=== PATIENT | male | born 1970 | race Caucasian/White ===

== ENCOUNTER 2017-06-05 03:52 | Inpatient (IN) | payer SELFPAY ==
[~2017-06-05] VITALS: Ht 177.8 cm; Wt 70.3 kg
[2017-06-05] VITALS (71 sets, daily range): BP systolic 76–146; BP diastolic 30–91
[2017-06-05] MEDS ORDERED: PROPOFOL 10MG/ML 100ML 100 ML IV ONE ×2 (04:15→05:45)
[2017-06-05] MEDS ORDERED: SUCCINYLCHOLINE CHLORIDE 200MG/10ML VIAL IV ONE ×2 (04:15→06:00)
[2017-06-05] MEDS ORDERED: FUROSEMIDE 40MG/4ML VIAL IV ONE (04:15)
[2017-06-05] MEDS ORDERED: ETOMIDATE 2MG/ML 10ML VIAL IV ONE ×2 (04:15→06:00)
[2017-06-05] MEDS ORDERED: ONDANSETRON HCL 4MG/2ML VIAL IV STA (04:15)
[2017-06-05] MEDS ORDERED: NITROGLYCERIN 50MG PREMIX 250 ML IV ONE ×2 (04:22→06:30)
[2017-06-05 04:48] LABS: HEMATOCRIT. 57.3 % (42.0-52.0); HEMOGLOBIN. 18.8 g/dL (14.0-18.0); MEAN CORPUSCULAR HEMOGLOBIN 29.4 pg (28.0-32.0); MEAN CORPUSCULAR VOLUME 89.8 fL (80.0-94.0); MEAN PLATELET VOLUME 8.8 fl (7.4-10.4); PLATELET 287 x1000/uL (130-400); RED BLOOD CELL COUNT 6.38 mill/uL (4.7-6.1); RED CELL DISTRIBUTION WIDTH 13.6 % (11.6-14.6)
[2017-06-05 04:54] LABS: INR 1.1; PROTHROMBIN TIME 11.8 sec (9.4-11.6)
[2017-06-05 05:10] LABS: CARBON DIOXIDE 13 mEq/L (21-32); CHLORIDE 101 mEq/L (98-107)
[2017-06-05 05:14] LABS: ATYPICAL LYMPHOCYTES 1; PLATELET ESTIMATE NORMAL
[2017-06-05 05:22] LABS: BG BASE EXCESS -20.1 mmol/L (-2.0-2.0); BG CARBOXYHEMOGLOBIN 3.1 % (0.5-1.5); BG DEOXYHEMOGLOBIN 16.6 % (0.0-5.0); BG FRACTION INSPIRED OXYGEN 100; BG HCO3 ACT 10.5 mmol/L (22.0-26.0); BG METHEMOGLOBIN 0.5 % (0.0-1.5); BG OXYGEN SATURATION 82.8 % (92.0-98.5); BG OXYHEMOGLOBIN 79.8 % (94.0-97.0); BG PCO2 40.9 mmHg (35.0-45.0); BG PH 7.026 (7.350-7.450); BG PO2 61.6 mmHg (75.0-100.0); BG SAMPLE SITE RIGHT RADIAL; BG TIDAL VOLUME(mL) 500 mL; BG TOTAL HEMOGLOBIN 20.5 g/dL (12.0-18.0); BG VENT MODE VENT - A/C; BG VENT RATE 16 set
[2017-06-05] MEDS ORDERED: EPINEPHRINE 0.1MG/ML (1:10,000) 10ML SYR ONE (06:00)
[2017-06-05 06:09] LABS: *AMPHETAMINES SCREEN URINE NEGATIVE (NEGATIVE); *BARBITURATES SCREEN URINE NEGATIVE (NEGATIVE); *BENZODIAZEPINES SCREEN URINE NEGATIVE (NEGATIVE); *COCAINE SCREEN URINE PRESUMTIVE POSITIVE (NEGATIVE); CANNABINOID URINE SCREEN NEGATIVE (NEGATIVE); METHADONE URINE SCREEN NEGATIVE (NEGATIVE); OPIATES URINE SCREEN NEGATIVE (NEGATIVE); PHENCYCLIDINE URINE SCREEN NEGATIVE (NEGATIVE)
[2017-06-05] MEDS ORDERED: DEXTROSE 50% WATER 50ML SYRINGE IV PRN ×5 (06:30→09:30)
[2017-06-05] MEDS ORDERED: INSULIN LISPRO 100 UNITS/ML SUBCUT SCH (06:30)
[2017-06-05] MEDS ORDERED: BLOOD SUGAR DIAGNOSTIC STRIP TEST SCH ×3 (06:30→09:30)
[2017-06-05] MEDS ORDERED: LOSA25TA12 PO (07:08)
[2017-06-05] MEDS ORDERED: GLIP5TAB12 PO (07:08)
[2017-06-05] MEDS ORDERED: VANCOMYCIN 1,500 MG in DEXT 5% WATER 250 ML IV SCH (07:15)
[2017-06-05] MEDS ORDERED: MIDAZOLAM HCL 100 MG in DEXTROSE 5% WATER 80 ML IV SCH ×2 (07:15→07:30)
[2017-06-05] MEDS ORDERED: MIDAZOLAM HCL 100 MG in DEXT 5% WATER 80 ML IV PRN (07:30)
[2017-06-05] MEDS ORDERED: MIDAZOLAM HCL 100 MG in DEXT 5% WATER 100 ML IV PRN (07:30)
[2017-06-05] MEDS: PANTOPRAZOLE SODIUM 40 MG/VIAL IV SCH (07:54)
[2017-06-05] MEDS ORDERED: NOREPINEPHRINE 16 MG in DEXT 5% WATER 234 ML IV PRN (08:30)
[2017-06-05] MEDS ORDERED: SODIUM BICARBONATE 8.4% 1 MEQ/ML 50ML SYR IV SCH (08:45)
[2017-06-05] MEDS ORDERED: SODIUM BICARBONATE 4% (2.4MEQ) 5ML VIAL IV ONE (08:51)
[2017-06-05] MEDS ORDERED: LIDOCAINE HCL 1% 20ML VIAL (Pyxis) INJ ONE (08:51)
[2017-06-05] MEDS: PHENYLEPHRINE 40 MG in DEXT 5% WATER 246 ML IV PRN ×2 (08:51→12:50)
[2017-06-05 08:56] LABS: BG BASE EXCESS -13.4 mmol/L (-2.0-2.0); BG CARBOXYHEMOGLOBIN 0.2 % (0.5-1.5); BG DEOXYHEMOGLOBIN 4.3 % (0.0-5.0); BG FRACTION INSPIRED OXYGEN 100; BG HCO3 ACT 11.9 mmol/L (22.0-26.0); BG METHEMOGLOBIN 0.4 % (0.0-1.5); BG OXYGEN SATURATION 95.7 % (92.0-98.5); BG OXYHEMOGLOBIN 95.1 % (94.0-97.0); BG PCO2 28.4 mmHg (35.0-45.0); BG PH 7.241 (7.350-7.450); BG PO2 88.3 mmHg (75.0-100.0); BG SAMPLE SITE RIGHT RADIAL; BG TIDAL VOLUME(mL) 500 mL; BG TOTAL HEMOGLOBIN 20.7 g/dL (12.0-18.0); BG VENT MODE VENT - A/C; BG VENT RATE 16 set
[2017-06-05] MEDS ORDERED: FUROSEMIDE 40MG/4ML VIAL IVP SCH (09:00)
[2017-06-05] MEDS: BLOOD SUGAR DIAGNOSTIC STRIP TEST SCH ×14 (09:00→23:02)
[2017-06-05] MEDS ORDERED: SODIUM BICARBONATE 8.4% 1 MEQ/ML 50ML SYR IV NR (09:00)
[2017-06-05] MEDS ORDERED: INSULIN REGULAR (DRIP) 100 UNITS in SODIUM CHLORIDE 0.9% 99 ML IV PRN (09:15)
[2017-06-05 09:28] LABS: T4 FREE 0.9 ng/dL (0.76-1.46)
[2017-06-05] MEDS ORDERED: SODIUM CHLORIDE 0.9% 1,000 ML IV SCH (09:30)
[2017-06-05] MEDS: ACETAMINOPHEN 650MG/20.3ML UDC PO PRN ×2 (09:37→15:13)
[2017-06-05] MEDS: ASPIRIN 81MG TABLET PO SCH (09:37)
[2017-06-05 10:08] LABS: BG BASE EXCESS -5.7 mmol/L (-2.0-2.0); BG CARBOXYHEMOGLOBIN 0.3 % (0.5-1.5); BG DEOXYHEMOGLOBIN 1.3 % (0.0-5.0); BG FRACTION INSPIRED OXYGEN 100; BG HCO3 ACT 17.9 mmol/L (22.0-26.0); BG METHEMOGLOBIN 0.7 % (0.0-1.5); BG OXYGEN SATURATION 98.7 % (92.0-98.5); BG OXYHEMOGLOBIN 97.7 % (94.0-97.0); BG PCO2 31.8 mmHg (35.0-45.0); BG PH 7.369 (7.350-7.450); BG PO2 145.3 mmHg (75.0-100.0); BG SAMPLE SITE RIGHT RADIAL; BG TIDAL VOLUME(mL) 500 mL; BG TOTAL HEMOGLOBIN 20.3 g/dL (12.0-18.0); BG VENT MODE VENT - A/C; BG VENT RATE 16 set
[2017-06-05] MEDS: FENTANYL CITRATE/PF 500 MCG in SODIUM CHLORIDE 0.9% 40 ML IV PRN ×2 (10:56→19:59)
[2017-06-05] MEDS: INSULIN REGULAR (DRIP) 100 UNITS in SODIUM CHLORIDE 0.9% 100 ML IV SCH (10:58)
[2017-06-05] MEDS ORDERED: DEXT 5%/0.9% NACL 1,000 ML IV SCH ×2 (11:00→15:15)
[2017-06-05] MEDS ORDERED: ZOSYN (PIPERACILLIN/TAZOBACTAM) XX SCH (11:15)
[2017-06-05 12:54] LABS: CREATINE KINASE MB FRACTION 90.3 ng/mL (0.5-3.6)
[2017-06-05 13:26] LABS: CLARITY URINE CLOUDY (CLEAR); COLOR URINE YELLOW (YELLOW); GLUCOSE URINE TRACE (NEGATIVE); KETONES URINE NEGATIVE (NEGATIVE); LEUKOCYTE ESTERASE URINE NEGATIVE (NEGATIVE); NITRITE URINE NEGATIVE (NEGATIVE); OCCULT BLOOD URINE TRACE (NEGATIVE); PROTEIN URINE NEGATIVE (NEGATIVE); SPECIFIC GRAVITY URINE 1.018 (1.005-1.030); UROBILINOGEN URINE 0.2 E.U./dL (0.2-1.0)
[2017-06-05] MEDS: PIPERACILLIN/TAZ 3.375G PREMIX 50 ML IV SCH ×3 (15:01→23:02)
[2017-06-05] MEDS: CLOPIDOGREL 75MG TABLET PO SCH (15:13)
[2017-06-05] MEDS: ENOXAPARIN 80MG/0.8ML SYR SUBCUT SCH ×2 (15:13→20:34)
[2017-06-05 16:21] LABS: CARBON DIOXIDE 25 mEq/L (21-32); CHLORIDE 109 mEq/L (98-107)
[2017-06-05] MEDS: POTASSIUM CHLORIDE 20MEQ/PACKET PO SCH (20:33)
[2017-06-05] MEDS: VANCOMYCIN 1250MG in DEXTROSE 5% WATER 250ML IV SCH (20:34)
[2017-06-06] VITALS (56 sets, daily range): BP systolic 98–124; BP diastolic 56–84
[2017-06-06] MEDS: BLOOD SUGAR DIAGNOSTIC STRIP TEST SCH ×10 (00:13→17:19)
[2017-06-06] MEDS: FENTANYL CITRATE/PF 500 MCG in SODIUM CHLORIDE 0.9% 40 ML IV PRN ×3 (03:21→20:51)
[2017-06-06] MEDS: INSULIN REGULAR (DRIP) 100 UNITS in SODIUM CHLORIDE 0.9% 100 ML IV SCH (04:26)
[2017-06-06] MEDS: PIPERACILLIN/TAZ 3.375G PREMIX 50 ML IV SCH ×4 (05:10→23:54)
[2017-06-06 06:04] LABS: HEMATOCRIT. 45.5 % (42.0-52.0); HEMOGLOBIN. 15.9 g/dL (14.0-18.0); MEAN CORPUSCULAR HEMOGLOBIN 29.7 pg (28.0-32.0); MEAN PLATELET VOLUME 8.4 fl (7.4-10.4); PLATELET 151 x1000/uL (130-400); RED BLOOD CELL COUNT 5.35 mill/uL (4.7-6.1); RED CELL DISTRIBUTION WIDTH 13.6 % (11.6-14.6)
[2017-06-06 06:39] LABS: CARBON DIOXIDE 24 mEq/L (21-32); CHLORIDE 110 mEq/L (98-107); PHOSPHORUS 2.7 mg/dL (2.5-4.9)
[2017-06-06] MEDS: POTASSIUM CHLORIDE 20MEQ/PACKET PO SCH (08:31)
[2017-06-06] MEDS: FUROSEMIDE 40MG/4ML VIAL IVP SCH (08:31)
[2017-06-06] MEDS: PANTOPRAZOLE SODIUM 40 MG/VIAL IV SCH (08:31)
[2017-06-06] MEDS: VANCOMYCIN 1250MG in DEXTROSE 5% WATER 250ML IV SCH ×2 (08:32→20:45)
[2017-06-06] MEDS: ENOXAPARIN 80MG/0.8ML SYR SUBCUT SCH ×2 (08:32→20:46)
[2017-06-06] MEDS: CLOPIDOGREL 75MG TABLET PO SCH (08:32)
[2017-06-06] MEDS: ASPIRIN 81MG TABLET PO SCH (08:32)
[2017-06-06 08:52] LABS: BG BASE EXCESS 0.9 mmol/L (-2.0-2.0); BG CARBOXYHEMOGLOBIN 0.9 % (0.5-1.5); BG DEOXYHEMOGLOBIN 3.3 % (0.0-5.0); BG FRACTION INSPIRED OXYGEN 60; BG HCO3 ACT 24.5 mmol/L (22.0-26.0); BG METHEMOGLOBIN 0.2 % (0.0-1.5); BG OXYGEN SATURATION 96.7 % (92.0-98.5); BG OXYHEMOGLOBIN 95.6 % (94.0-97.0); BG PCO2 36.3 mmHg (35.0-45.0); BG PH 7.447 (7.350-7.450); BG PO2 88.4 mmHg (75.0-100.0); BG SAMPLE SITE LEFT RADIAL; BG TIDAL VOLUME(mL) 500 mL; BG TOTAL HEMOGLOBIN 16.1 g/dL (12.0-18.0); BG VENT MODE VENT - A/C; BG VENT RATE 16 set
[2017-06-06] MEDS ORDERED: ENOXAPARIN 40MG/0.4ML SYR SUBCUT SCH (11:00)
[2017-06-06] MEDS: INSULIN LISPRO 100 UNITS/ML SUBCUT SCH ×3 (12:00→23:55)
[2017-06-06] MEDS ORDERED: POTASSIUM CHLORIDE INJ 40 MEQ in DEXT 5% WATER 250 ML IV NR (12:00)
[2017-06-06] MEDS: INSULIN DETEMIR UD 100 UNITS/ML SYR SUBCUT SCH (12:08)
[2017-06-06 13:21] LABS: PLATELET ESTIMATE NORMAL
[2017-06-06] MEDS: ACETAMINOPHEN 650MG/20.3ML UDC PO PRN (16:19)
[2017-06-06] MEDS ORDERED: HYDROCODONE/ACETAMINOPHEN 5/325MG TABLET PO PRN (16:45)
[2017-06-06] MEDS ORDERED: ONDANSETRON HCL 4MG/2ML VIAL IV PRN (16:45)
[2017-06-06] MEDS: LEVOFLOXACIN 500MG PREMIX 100 ML IV SCH (18:30)
[2017-06-07] VITALS (51 sets, daily range): BP systolic 99–145; BP diastolic 53–100
[2017-06-07 00:54] LABS: TROPONIN I 7.4 ng/mL (0.00-0.04)
[2017-06-07] MEDS: BLOOD SUGAR DIAGNOSTIC STRIP TEST SCH ×4 (05:31→18:04)
[2017-06-07] MEDS: PIPERACILLIN/TAZ 3.375G PREMIX 50 ML IV SCH ×4 (05:31→23:24)
[2017-06-07] MEDS: INSULIN LISPRO 100 UNITS/ML SUBCUT SCH ×3 (05:38→18:08)
[2017-06-07 06:19] LABS: CARBON DIOXIDE 26 mEq/L (21-32); CHLORIDE 113 mEq/L (98-107); CREATINE KINASE 289 IU/L (39-308); CREATINE KINASE MB FRACTION 4.3 ng/mL (0.5-3.6)
[2017-06-07 06:21] LABS: BASOPHILS % 0.3 % (0.0-2.0); EOSINOPHILS % 0.3 % (0.0-5.0); HEMATOCRIT. 42.6 % (42.0-52.0); HEMOGLOBIN. 14.6 g/dL (14.0-18.0); LYMPHOCYTES % 10.7 % (20.0-50.0); MEAN CORPUSCULAR HEMOGLOBIN 29.8 pg (28.0-32.0); MEAN CORPUSCULAR VOLUME 87.1 fL (80.0-94.0); MEAN PLATELET VOLUME 8.8 fl (7.4-10.4); MONOCYTES % 6.7 % (2.0-8.0); PLATELET 161 x1000/uL (130-400); RED BLOOD CELL COUNT 4.89 mill/uL (4.7-6.1); RED CELL DISTRIBUTION WIDTH 13.7 % (11.6-14.6)
[2017-06-07] MEDS: FENTANYL CITRATE/PF 500 MCG in SODIUM CHLORIDE 0.9% 40 ML IV PRN (07:28)
[2017-06-07 08:26] LABS: BG BASE EXCESS -2.6 mmol/L (-2.0-2.0); BG CARBOXYHEMOGLOBIN 0.7 % (0.5-1.5); BG DEOXYHEMOGLOBIN 1.5 % (0.0-5.0); BG FRACTION INSPIRED OXYGEN 40; BG HCO3 ACT 21.9 mmol/L (22.0-26.0); BG METHEMOGLOBIN 0.3 % (0.0-1.5); BG OXYGEN SATURATION 98.5 % (92.0-98.5); BG OXYHEMOGLOBIN 97.5 % (94.0-97.0); BG PCO2 37.4 mmHg (35.0-45.0); BG PH 7.386 (7.350-7.450); BG PO2 141.9 mmHg (75.0-100.0); BG SAMPLE SITE LEFT RADIAL; BG TIDAL VOLUME(mL) 500 mL; BG VENT MODE VENT - A/C; BG VENT RATE 16 set
[2017-06-07] MEDS: POTASSIUM CHLORIDE 20MEQ/PACKET PO SCH (09:06)
[2017-06-07] MEDS: ENOXAPARIN 80MG/0.8ML SYR SUBCUT SCH ×2 (09:06→21:41)
[2017-06-07] MEDS: VANCOMYCIN 1250MG in DEXTROSE 5% WATER 250ML IV SCH ×3 (09:07→21:40)
[2017-06-07] MEDS: ASPIRIN 81MG TABLET PO SCH (09:07)
[2017-06-07] MEDS: FUROSEMIDE 40MG/4ML VIAL IVP SCH (09:07)
[2017-06-07] MEDS: THIAMINE HCL 100MG TABLET PO SCH (09:07)
[2017-06-07] MEDS: PANTOPRAZOLE SODIUM 40 MG/VIAL IV SCH (09:07)
[2017-06-07] MEDS: CLOPIDOGREL 75MG TABLET PO SCH (09:07)
[2017-06-07] MEDS: INSULIN DETEMIR UD 100 UNITS/ML SYR SUBCUT SCH (09:08)
[2017-06-07 11:22] LABS: BG BASE EXCESS 1.3 mmol/L (-2.0-2.0); BG DEOXYHEMOGLOBIN 1.4 % (0.0-5.0); BG FRACTION INSPIRED OXYGEN 40; BG HCO3 ACT 26.5 mmol/L (22.0-26.0); BG METHEMOGLOBIN 0.1 % (0.0-1.5); BG OXYGEN SATURATION 98.6 % (92.0-98.5); BG OXYHEMOGLOBIN 97.5 % (94.0-97.0); BG PCO2 43.9 mmHg (35.0-45.0); BG PH 7.399 (7.350-7.450); BG PO2 141.6 mmHg (75.0-100.0); BG PRESSURE SUPPORT 6; BG SAMPLE SITE LEFT RADIAL; BG TOTAL HEMOGLOBIN 15.6 g/dL (12.0-18.0); BG VENT MODE VENT - CPAP
[2017-06-07] MEDS ORDERED: POTASSIUM PHOS,M-BASIC-D-BASIC 15 MMOL in DEXT 5% WATER 245 ML IV SCH (14:00)
[2017-06-07 15:08] LABS: CREATINE KINASE MB FRACTION 2.7 ng/mL (0.5-3.6)
[2017-06-07 15:18] LABS: TROPONIN I 5.2 ng/mL (0.00-0.04)
[2017-06-07] MEDS: LEVOFLOXACIN 500MG PREMIX 100 ML IV SCH (18:08)
[2017-06-08] VITALS (36 sets, daily range): BP systolic 103–146; BP diastolic 66–97
[2017-06-08] MEDS: INSULIN LISPRO 100 UNITS/ML SUBCUT SCH ×5 (00:16→22:00)
[2017-06-08] MEDS: BLOOD SUGAR DIAGNOSTIC STRIP TEST SCH ×5 (00:23→21:00)
[2017-06-08] MEDS: PIPERACILLIN/TAZ 3.375G PREMIX 50 ML IV SCH ×3 (05:00→17:59)
[2017-06-08] MEDS: VANCOMYCIN 1250MG in DEXTROSE 5% WATER 250ML IV SCH ×2 (05:29→14:24)
[2017-06-08] MEDS: ASPIRIN 81MG TABLET PO SCH (09:06)
[2017-06-08] MEDS: PANTOPRAZOLE SODIUM 40 MG/VIAL IV SCH (09:07)
[2017-06-08] MEDS: FUROSEMIDE 40MG/4ML VIAL IVP SCH (09:07)
[2017-06-08] MEDS: CLOPIDOGREL 75MG TABLET PO SCH (09:07)
[2017-06-08] MEDS: THIAMINE HCL 100MG TABLET PO SCH (09:07)
[2017-06-08] MEDS: POTASSIUM CHLORIDE 20MEQ/PACKET PO SCH (09:09)
[2017-06-08] MEDS: ENOXAPARIN 80MG/0.8ML SYR SUBCUT SCH ×2 (09:11→19:54)
[2017-06-08] MEDS: INSULIN DETEMIR UD 100 UNITS/ML SYR SUBCUT SCH (09:29)
[2017-06-08] MEDS: IPRATROPIUM/ALBUTEROL 0.5-3(2.5)MG/3ML NEB HHN SCH ×3 (14:18→23:50)
[2017-06-08] MEDS: LOSARTAN POTASSIUM 25 MG TABLET PO SCH (14:29)
[2017-06-08] MEDS: LEVOFLOXACIN 500MG PREMIX 100 ML IV SCH (19:02)
[2017-06-08] MEDS: CARVEDILOL 3.125 MG TABLET PO SCH (21:59)
[2017-06-09] VITALS (28 sets, daily range): BP systolic 94–136; BP diastolic 58–92
[2017-06-09] MEDS: PIPERACILLIN/TAZ 3.375G PREMIX 50 ML IV SCH ×2 (00:04→05:47)
[2017-06-09] MEDS: BLOOD SUGAR DIAGNOSTIC STRIP TEST SCH ×4 (05:47→20:45)
[2017-06-09] MEDS: INSULIN LISPRO 100 UNITS/ML SUBCUT SCH ×4 (05:47→20:50)
[2017-06-09] MEDS: IPRATROPIUM/ALBUTEROL 0.5-3(2.5)MG/3ML NEB HHN SCH ×3 (07:30→20:29)
[2017-06-09] MEDS: CLOPIDOGREL 75MG TABLET PO SCH (08:59)
[2017-06-09] MEDS: FUROSEMIDE 40MG/4ML VIAL IVP SCH (08:59)
[2017-06-09] MEDS: ASPIRIN 81MG TABLET PO SCH (09:00)
[2017-06-09] MEDS ORDERED: IOHEXOL-300 100 ML BOTTLE ONE (09:59)
[2017-06-09] MEDS ORDERED: LIDOCAINE HCL 1% 20ML VIAL (Pyxis) INJ ONE (09:59)
[2017-06-09] MEDS ORDERED: FENTANYL CITRATE/PF 50MCG/ML 2ML VIAL ONE (10:14)
[2017-06-09] MEDS ORDERED: MIDAZOLAM HCL 2 MG/2 ML VIAL ONE (10:14)
[2017-06-09] MEDS ORDERED: ACETAMINOPHEN 325MG TABLET PO PRN (11:15)
[2017-06-09] MEDS ORDERED: ATROPINE SULFATE 1MG/10ML SYR IV PRN (11:15)
[2017-06-09] MEDS: THIAMINE HCL 100MG TABLET PO SCH (12:45)
[2017-06-09] MEDS: PANTOPRAZOLE SODIUM 40 MG/VIAL IV SCH (12:45)
[2017-06-09] MEDS: LOSARTAN POTASSIUM 25 MG TABLET PO SCH (12:45)
[2017-06-09] MEDS: CARVEDILOL 3.125 MG TABLET PO SCH ×2 (12:45→21:00)
[2017-06-09] MEDS: POTASSIUM CHLORIDE 20MEQ/PACKET PO SCH (12:45)
[2017-06-09] MEDS: INSULIN DETEMIR UD 100 UNITS/ML SYR SUBCUT SCH (12:45)
[2017-06-09] MEDS: ENOXAPARIN 80MG/0.8ML SYR SUBCUT SCH (17:21)
[2017-06-10] VITALS (15 sets, daily range): BP systolic 91–140; BP diastolic 48–83
[2017-06-10] MEDS: IPRATROPIUM/ALBUTEROL 0.5-3(2.5)MG/3ML NEB HHN SCH ×4 (00:09→19:52)
[2017-06-10] MEDS: ENOXAPARIN 80MG/0.8ML SYR SUBCUT SCH ×2 (04:33→17:38)
[2017-06-10] MEDS: BLOOD SUGAR DIAGNOSTIC STRIP TEST SCH ×4 (05:53→20:56)
[2017-06-10 07:32] LABS: BASOPHILS % 0.7 % (0.0-2.0); EOSINOPHILS % 2.8 % (0.0-5.0); HEMATOCRIT. 42.8 % (42.0-52.0); HEMOGLOBIN. 15.2 g/dL (14.0-18.0); LYMPHOCYTES % 24.5 % (20.0-50.0); MEAN CORPUSCULAR HEMOGLOBIN 29.5 pg (28.0-32.0); MEAN CORPUSCULAR VOLUME 83.2 fL (80.0-94.0); MEAN PLATELET VOLUME 8.2 fl (7.4-10.4); MONOCYTES % 7.7 % (2.0-8.0); NEUTROPHILS % 64.3 % (40.0-76.0); PLATELET 192 x1000/uL (130-400); RED BLOOD CELL COUNT 5.15 mill/uL (4.7-6.1); RED CELL DISTRIBUTION WIDTH 13.2 % (11.6-14.6)
[2017-06-10 07:50] LABS: CARBON DIOXIDE 24 mEq/L (21-32); CHLORIDE 105 mEq/L (98-107)
[2017-06-10] MEDS: PANTOPRAZOLE SODIUM 40 MG/VIAL IV SCH (09:08)
[2017-06-10] MEDS: FUROSEMIDE 40MG/4ML VIAL IVP SCH (09:08)
[2017-06-10] MEDS: ASPIRIN 81MG TABLET PO SCH (09:08)
[2017-06-10] MEDS: CARVEDILOL 3.125 MG TABLET PO SCH ×2 (09:09→20:56)
[2017-06-10] MEDS: CLOPIDOGREL 75MG TABLET PO SCH (09:09)
[2017-06-10] MEDS: THIAMINE HCL 100MG TABLET PO SCH (09:09)
[2017-06-10] MEDS: LOSARTAN POTASSIUM 25 MG TABLET PO SCH (09:09)
[2017-06-10] MEDS: POTASSIUM CHLORIDE 20MEQ/PACKET PO SCH (09:10)
[2017-06-10] MEDS: INSULIN LISPRO 100 UNITS/ML SUBCUT SCH ×4 (09:29→20:58)
[2017-06-10] MEDS: INSULIN DETEMIR UD 100 UNITS/ML SYR SUBCUT SCH (11:07)
[2017-06-10 14:26] LABS: HEPATITIS B SURFACE ANTIGEN NEGATIVE
[2017-06-10] MEDS: ATORVASTATIN CALCIUM 40MG TABLET PO SCH (20:56)
[2017-06-11] VITALS (13 sets, daily range): BP systolic 91–130; BP diastolic 55–90
[2017-06-11] MEDS: IPRATROPIUM/ALBUTEROL 0.5-3(2.5)MG/3ML NEB HHN SCH ×4 (02:18→20:02)
[2017-06-11] MEDS: ENOXAPARIN 80MG/0.8ML SYR SUBCUT SCH ×2 (05:25→17:14)
[2017-06-11] MEDS: BLOOD SUGAR DIAGNOSTIC STRIP TEST SCH ×4 (06:21→21:00)
[2017-06-11] MEDS: INSULIN LISPRO 100 UNITS/ML SUBCUT SCH ×4 (06:42→21:02)
[2017-06-11] MEDS: PANTOPRAZOLE SODIUM 40 MG/VIAL IV SCH (08:46)
[2017-06-11] MEDS: FUROSEMIDE 40MG/4ML VIAL IVP SCH (08:46)
[2017-06-11] MEDS: CLOPIDOGREL 75MG TABLET PO SCH (08:48)
[2017-06-11] MEDS: CARVEDILOL 3.125 MG TABLET PO SCH ×2 (08:48→21:00)
[2017-06-11] MEDS: POTASSIUM CHLORIDE 20MEQ/PACKET PO SCH (08:48)
[2017-06-11] MEDS: THIAMINE HCL 100MG TABLET PO SCH (08:48)
[2017-06-11] MEDS: ASPIRIN 81MG TABLET PO SCH (08:49)
[2017-06-11] MEDS: LOSARTAN POTASSIUM 25 MG TABLET PO SCH (08:49)
[2017-06-11] MEDS: INSULIN DETEMIR UD 100 UNITS/ML SYR SUBCUT SCH (10:30)
[2017-06-11 13:51] LABS: HEPATITIS B SURFACE ANTIGEN NEGATIVE
[2017-06-11 14:19] LABS: HEPATITIS B CORE AB IGM NEGATIVE
[2017-06-11 14:21] LABS: HEPATITIS A AB IGM NEGATIVE (NEGATIVE)
[2017-06-11] MEDS: ATORVASTATIN CALCIUM 40MG TABLET PO SCH (21:00)
[2017-06-12] VITALS (12 sets, daily range): BP systolic 90–137; BP diastolic 31–106
[2017-06-12] MEDS: IPRATROPIUM/ALBUTEROL 0.5-3(2.5)MG/3ML NEB HHN SCH ×4 (01:42→19:47)
[2017-06-12] MEDS: ENOXAPARIN 80MG/0.8ML SYR SUBCUT SCH ×2 (05:08→16:08)
[2017-06-12] MEDS: BLOOD SUGAR DIAGNOSTIC STRIP TEST SCH ×4 (06:09→20:47)
[2017-06-12] MEDS: INSULIN LISPRO 100 UNITS/ML SUBCUT SCH ×4 (06:09→20:48)
[2017-06-12] MEDS: PANTOPRAZOLE SODIUM 40 MG/VIAL IV SCH (08:15)
[2017-06-12] MEDS: CLOPIDOGREL 75MG TABLET PO SCH (08:15)
[2017-06-12] MEDS: THIAMINE HCL 100MG TABLET PO SCH (08:16)
[2017-06-12] MEDS: ASPIRIN 81MG TABLET PO SCH (08:16)
[2017-06-12] MEDS: FUROSEMIDE 40MG/4ML VIAL IVP SCH (08:23)
[2017-06-12] MEDS: POTASSIUM CHLORIDE 20MEQ/PACKET PO SCH (08:23)
[2017-06-12] MEDS: LOSARTAN POTASSIUM 25 MG TABLET PO SCH (09:57)
[2017-06-12] MEDS: CARVEDILOL 3.125 MG TABLET PO SCH ×2 (09:57→20:47)
[2017-06-12] MEDS: INSULIN DETEMIR UD 100 UNITS/ML SYR SUBCUT SCH (11:12)
[2017-06-12] MEDS: ATORVASTATIN CALCIUM 40MG TABLET PO SCH (20:46)
[2017-06-13] VITALS (13 sets, daily range): BP systolic 93–127; BP diastolic 60–91
[2017-06-13] MEDS: IPRATROPIUM/ALBUTEROL 0.5-3(2.5)MG/3ML NEB HHN SCH ×4 (00:53→20:54)
[2017-06-13] MEDS: ENOXAPARIN 80MG/0.8ML SYR SUBCUT SCH ×2 (05:26→17:21)
[2017-06-13] MEDS: BLOOD SUGAR DIAGNOSTIC STRIP TEST SCH ×4 (06:15→21:26)
[2017-06-13] MEDS: INSULIN LISPRO 100 UNITS/ML SUBCUT SCH ×4 (06:15→21:26)
[2017-06-13] MEDS: THIAMINE HCL 100MG TABLET PO SCH (08:14)
[2017-06-13] MEDS: POTASSIUM CHLORIDE 20MEQ/PACKET PO SCH (08:14)
[2017-06-13] MEDS: CLOPIDOGREL 75MG TABLET PO SCH (08:14)
[2017-06-13] MEDS: CARVEDILOL 3.125 MG TABLET PO SCH ×2 (08:14→21:00)
[2017-06-13] MEDS: ASPIRIN 81MG TABLET PO SCH (08:14)
[2017-06-13] MEDS: PANTOPRAZOLE SODIUM 40 MG/VIAL IV SCH (08:14)
[2017-06-13] MEDS: LOSARTAN POTASSIUM 25 MG TABLET PO SCH (08:15)
[2017-06-13] MEDS: FUROSEMIDE 40MG/4ML VIAL IVP SCH (08:16)
[2017-06-13] MEDS: INSULIN DETEMIR UD 100 UNITS/ML SYR SUBCUT SCH (11:19)
[2017-06-13 20:22] LABS: PLT FUNCT COLLAGEN/EPINEPHRINE > 300 CT(SEC) (76-176)
[2017-06-13 20:23] LABS: PTLFUNC COLLAGEN/ADP 58 CT(SEC) (60-115)
[2017-06-13] MEDS: ATORVASTATIN CALCIUM 40MG TABLET PO SCH (21:26)
[2017-06-14] VITALS (14 sets, daily range): BP systolic 89–122; BP diastolic 52–82
[2017-06-14] MEDS: IPRATROPIUM/ALBUTEROL 0.5-3(2.5)MG/3ML NEB HHN SCH ×4 (00:40→21:16)
[2017-06-14] MEDS: ENOXAPARIN 80MG/0.8ML SYR SUBCUT SCH ×2 (05:38→17:49)
[2017-06-14] MEDS: BLOOD SUGAR DIAGNOSTIC STRIP TEST SCH ×4 (06:21→20:47)
[2017-06-14] MEDS: INSULIN LISPRO 100 UNITS/ML SUBCUT SCH ×4 (06:22→20:54)
[2017-06-14] MEDS: PANTOPRAZOLE SODIUM 40 MG/VIAL IV SCH (08:32)
[2017-06-14] MEDS: THIAMINE HCL 100MG TABLET PO SCH (08:32)
[2017-06-14] MEDS: FUROSEMIDE 40MG/4ML VIAL IVP SCH (08:32)
[2017-06-14] MEDS: POTASSIUM CHLORIDE 20MEQ/PACKET PO SCH (08:33)
[2017-06-14] MEDS: ASPIRIN 81MG TABLET PO SCH (08:48)
[2017-06-14] MEDS: CARVEDILOL 3.125 MG TABLET PO SCH ×2 (10:42→22:00)
[2017-06-14] MEDS: INSULIN DETEMIR UD 100 UNITS/ML SYR SUBCUT SCH (11:23)
[2017-06-14] MEDS: LOSARTAN POTASSIUM 25 MG TABLET PO SCH (13:34)
[2017-06-14] MEDS: ATORVASTATIN CALCIUM 40MG TABLET PO SCH (20:46)
[2017-06-15] VITALS (13 sets, daily range): BP systolic 92–133; BP diastolic 48–92
[2017-06-15] MEDS: IPRATROPIUM/ALBUTEROL 0.5-3(2.5)MG/3ML NEB HHN SCH ×4 (01:05→21:27)
[2017-06-15] MEDS: ENOXAPARIN 80MG/0.8ML SYR SUBCUT SCH (06:02)
[2017-06-15] MEDS: BLOOD SUGAR DIAGNOSTIC STRIP TEST SCH ×4 (06:08→21:24)
[2017-06-15 07:23] LABS: HEMATOCRIT. 40.6 % (42.0-52.0); HEMOGLOBIN. 14.5 g/dL (14.0-18.0); MEAN CORPUSCULAR HEMOGLOBIN 29.5 pg (28.0-32.0); MEAN CORPUSCULAR VOLUME 82.7 fL (80.0-94.0); MEAN PLATELET VOLUME 7.8 fl (7.4-10.4); PLATELET 336 x1000/uL (130-400); RED BLOOD CELL COUNT 4.91 mill/uL (4.7-6.1); RED CELL DISTRIBUTION WIDTH 13.3 % (11.6-14.6)
[2017-06-15] MEDS: THIAMINE HCL 100MG TABLET PO SCH (08:18)
[2017-06-15] MEDS: CARVEDILOL 3.125 MG TABLET PO SCH ×2 (08:19→21:00)
[2017-06-15] MEDS: LOSARTAN POTASSIUM 25 MG TABLET PO SCH (08:19)
[2017-06-15] MEDS: FUROSEMIDE 40MG/4ML VIAL IVP SCH (08:19)
[2017-06-15] MEDS: PANTOPRAZOLE SODIUM 40 MG/VIAL IV SCH (08:20)
[2017-06-15] MEDS: POTASSIUM CHLORIDE 20MEQ/PACKET PO SCH (08:21)
[2017-06-15] MEDS: INSULIN LISPRO 100 UNITS/ML SUBCUT SCH ×4 (08:22→21:31)
[2017-06-15] MEDS: ASPIRIN 81MG TABLET PO SCH (08:22)
[2017-06-15 08:23] LABS: PLT FUNCT COLLAGEN/EPINEPHRINE > 300 CT(SEC) (76-176); PTLFUNC COLLAGEN/ADP 63 CT(SEC) (60-115)
[2017-06-15 08:34] LABS: CARBON DIOXIDE 24 mEq/L (21-32); CHLORIDE 101 mEq/L (98-107); PHOSPHORUS 3.5 mg/dL (2.5-4.9)
[2017-06-15] MEDS: INSULIN DETEMIR UD 100 UNITS/ML SYR SUBCUT SCH (10:23)
[2017-06-15 13:41] LABS: PLATELET ESTIMATE NORMAL
[2017-06-15] MEDS ORDERED: NITROGLYCERIN 0.4MG TABLET SL SL PRN (17:00)
[2017-06-15] MEDS ORDERED: ALPRAZOLAM 0.25 MG TABLET PO PRN (17:00)
[2017-06-15] MEDS ORDERED: ACETAMINOPHEN 325MG TABLET PO PRN (17:00)
[2017-06-15] MEDS ORDERED: CHLORHEXIDINE GLUCONATE 4% EXTERNAL USE TOP SCH (21:00)
[2017-06-15] MEDS ORDERED: DOCUSATE SODIUM 100MG CAPSULE PO SCH (21:00)
[2017-06-15] MEDS ORDERED: BISACODYL 10MG SUPP PR PRN (21:00)
[2017-06-15] MEDS ORDERED: ASCORBIC ACID 500 MG TABLET PO SCH (21:00)
[2017-06-15] MEDS ORDERED: DIPHENHYDRAMINE 25MG CAPSULE PO PRN (21:00)
[2017-06-15] MEDS: ATORVASTATIN CALCIUM 40MG TABLET PO SCH (21:14)
[2017-06-15] MEDS: ALLOPURINOL 300 MG TABLET PO SCH (21:14)
[2017-06-15] MEDS: SODIUM CHLORIDE 0.9% INJ 3ML FLUSH IVF SCH (21:56)
[2017-06-15] MEDS: CHLORHEXIDINE GLUCONATE 4% EXTERNAL USE TOP SCH (22:21)
[2017-06-15 23:36] LABS: CARBON DIOXIDE 26 mEq/L (21-32); CHLORIDE 102 mEq/L (98-107)
[2017-06-16] VITALS (40 sets, daily range): BP systolic 92–160; BP diastolic 33–84
[2017-06-16] MEDS: IPRATROPIUM/ALBUTEROL 0.5-3(2.5)MG/3ML NEB HHN SCH ×4 (02:03→20:30)
[2017-06-16] MEDS: BLOOD SUGAR DIAGNOSTIC STRIP TEST SCH ×6 (05:50→23:13)
[2017-06-16] MEDS: SODIUM CHLORIDE 0.9% INJ 3ML FLUSH IVF SCH ×2 (05:53→22:00)
[2017-06-16] MEDS: ALLOPURINOL 300 MG TABLET PO SCH (05:54)
[2017-06-16] MEDS ORDERED: CEFAZOLIN 2,000 MG in DEXT 5% WATER 100 ML IV NR (06:00)
[2017-06-16] MEDS ORDERED: BLOOD SUGAR DIAGNOSTIC STRIP TEST NR (06:00)
[2017-06-16] MEDS ORDERED: AMINOCAPROIC ACID 10,000 MG in SODIUM CHLORIDE 0.9% 460 ML IV ONE (06:00)
[2017-06-16 06:42] LABS: INR 1.1; PROTHROMBIN TIME 11.4 sec (9.4-11.6)
[2017-06-16 06:43] LABS: BASOPHILS % 0.9 % (0.0-2.0); EOSINOPHILS % 2.3 % (0.0-5.0); HEMATOCRIT. 41.4 % (42.0-52.0); HEMOGLOBIN. 14.5 g/dL (14.0-18.0); LYMPHOCYTES % 28.6 % (20.0-50.0); MEAN CORPUSCULAR HEMOGLOBIN 29.1 pg (28.0-32.0); MEAN CORPUSCULAR VOLUME 82.9 fL (80.0-94.0); MEAN PLATELET VOLUME 7.6 fl (7.4-10.4); MONOCYTES % 8.1 % (2.0-8.0); NEUTROPHILS % 60.1 % (40.0-76.0); PLATELET 370 x1000/uL (130-400); RED BLOOD CELL COUNT 4.99 mill/uL (4.7-6.1); RED CELL DISTRIBUTION WIDTH 13.1 % (11.6-14.6)
[2017-06-16] MEDS: INSULIN LISPRO 100 UNITS/ML SUBCUT SCH (06:50)
[2017-06-16] MEDS: ASPIRIN 81MG TABLET PO SCH (08:10)
[2017-06-16] MEDS: CHLORHEXIDINE GLUCONATE 4% EXTERNAL USE TOP SCH (08:24)
[2017-06-16] MEDS: PANTOPRAZOLE SODIUM 40 MG/VIAL IV SCH ×2 (08:24→08:25)
[2017-06-16] MEDS: CARVEDILOL 3.125 MG TABLET PO SCH (08:25)
[2017-06-16] MEDS: FUROSEMIDE 40MG/4ML VIAL IVP SCH (08:25)
[2017-06-16] MEDS: THIAMINE HCL 100MG TABLET PO SCH (08:26)
[2017-06-16] MEDS: POTASSIUM CHLORIDE 20MEQ/PACKET PO SCH (08:26)
[2017-06-16] MEDS: LOSARTAN POTASSIUM 25 MG TABLET PO SCH (08:26)
[2017-06-16] MEDS: INSULIN DETEMIR UD 100 UNITS/ML SYR SUBCUT SCH (09:03)
[2017-06-16] MEDS ORDERED: CEFAZOLIN SODIUM 1000MG/VIAL ONE (09:14)
[2017-06-16] MEDS ORDERED: AMINOCAPROIC ACID 250 MG/ML 20ML VIAL ONE (09:14)
[2017-06-16] MEDS ORDERED: CALCIUM CHLORIDE 1GM/10ML SYR IV ONE ×2 (09:14→14:36)
[2017-06-16] MEDS ORDERED: HEPARIN 1000 UNITS/ML 10ML ONE ×2 (09:15→10:52)
[2017-06-16] MEDS ORDERED: HEPARIN 10,000 UNITS/ML VIAL ONE (09:15)
[2017-06-16] MEDS ORDERED: MANNITOL 20% 500 ML IV ONE (09:16)
[2017-06-16] MEDS ORDERED: MAGNESIUM SULFATE 5GM/10ML VIAL IV ONE (09:16)
[2017-06-16] MEDS ORDERED: PHENYLEPHRINE HCL 10 MG/ML 1ML (IV VIAL) IV ONE (09:16)
[2017-06-16] MEDS ORDERED: LIDOCAINE HCL 2% 5ML SYRINGE IV ONE (09:16)
[2017-06-16] MEDS ORDERED: POTASSIUM CHLORIDE 40MEQ/20ML INJ IV ONE (09:17)
[2017-06-16] MEDS ORDERED: SODIUM BICARBONATE 8.4% 1 MEQ/ML 50ML SYR IV ONE ×3 (09:17→18:15)
[2017-06-16] MEDS ORDERED: CEFAZOLIN 2,000 MG in DEXT 5% WATER 100 ML IV SCH (10:00)
[2017-06-16] MEDS ORDERED: NICARDIPINE 40MG/200ML PREMIX 200 ML IV SCH (10:00)
[2017-06-16] MEDS ORDERED: DEL NIDO ELECTROLYTE-S(PH 7.4) 1,000 ML IV SCH (10:00)
[2017-06-16] MEDS ORDERED: EPINEPHRINE 4 MG in DEXT 5% WATER 246 ML IV SCH (10:00)
[2017-06-16] MEDS ORDERED: NOREPINEPHRINE 4 MG in DEXT 5% WATER 246 ML IV SCH (10:00)
[2017-06-16] MEDS ORDERED: PAPAVERINE HCL 180MG in SODIUM CHLORIDE 0.9% 24ML IV SCH (10:00)
[2017-06-16] MEDS ORDERED: INSULIN REGULAR 100 UNITS in SODIUM CHLORIDE 0.9% 100ML IV SCH (10:00)
[2017-06-16] MEDS ORDERED: MIDAZOLAM HCL 5 MG/ML VIAL ONE (10:52)
[2017-06-16] MEDS ORDERED: METHYLENE BLUE 50 MG/10 ML AMP IV ONE (10:52)
[2017-06-16] MEDS ORDERED: NORMAL SALINE 0.9% 10 ML SYR ONE (10:53)
[2017-06-16] MEDS ORDERED: THROMBIN (BOVINE) 5000 UNITS/VIAL TOP ONE (10:53)
[2017-06-16] MEDS ORDERED: GELATIN SPONGE,ABSORBABLE SZ 100 ONE (10:54)
[2017-06-16] MEDS ORDERED: FENTANYL CITRATE/PF 50MCG/ML 2ML VIAL ONE ×2 (10:56→11:26)
[2017-06-16] MEDS ORDERED: SKIN ADHESIVE 0.7 GM EA TOP ONE (11:17)
[2017-06-16] MEDS ORDERED: BACITRACIN 50,000 UNITS/VIAL ONE (11:17)
[2017-06-16] MEDS ORDERED: BACITRACIN ZINC 15GM TUBE TOP ONE (11:17)
[2017-06-16] MEDS ORDERED: DOBUTAMINE HCL 250 MG in DEXT 5% WATER 230 ML IV ONE (12:15)
[2017-06-16] MEDS ORDERED: PROPOFOL 10MG/ML 100ML 200 ML IV ONE (16:05)
[2017-06-16] MEDS ORDERED: KCL 10MEQ/50ML PREMIX 200 ML IV PRN ×2 (16:15→16:45)
[2017-06-16] MEDS ORDERED: KCL 10MEQ/50ML PREMIX 100 ML IV PRN (16:15)
[2017-06-16] MEDS ORDERED: MAGNESIUM 1 GM IV PRN (16:15)
[2017-06-16] MEDS ORDERED: KCL 10MEQ/50ML PREMIX 150 ML IV PRN ×2 (16:15→16:45)
[2017-06-16] MEDS ORDERED: MAGNESIUM 2 G PREMIX 50 ML IV PRN (16:15)
[2017-06-16] MEDS ORDERED: PROPOFOL 10MG/ML 100ML 100 ML IV ONE (16:55)
[2017-06-16] MEDS ORDERED: ALBUMIN HUMAN 25GM/100ML (25%) IV ONE ×2 (16:55→17:03)
[2017-06-16] MEDS ORDERED: ALBUMIN HUMAN 12.5G/250ML (5%) IV ONE (17:05)
[2017-06-16] MEDS ORDERED: DEXT 5%/0.45% NACL 1000ML 1,000 ML IV SCH (17:42)
[2017-06-16] MEDS ORDERED: DOBUTAMINE 250MG PREMIX 250 ML IV SCH (17:42)
[2017-06-16] MEDS ORDERED: NOREPINEPHRINE 4 MG in DEXT 5% WATER 250 ML IV SCH (17:42)
[2017-06-16] MEDS ORDERED: SODIUM CHLORIDE 0.9% 500 ML IV PRN (17:42)
[2017-06-16] MEDS ORDERED: MAGNESIUM 1 G PREMIX 100 ML IV PRN (17:45)
[2017-06-16] MEDS ORDERED: ACETAMINOPHEN 325MG TABLET PO PRN (17:45)
[2017-06-16] MEDS ORDERED: ALBUMIN HUMAN 12.5G/250ML (5%) IV PRN (17:45)
[2017-06-16] MEDS ORDERED: OXYCODONE HCL/ACETAMINOPHEN 5/325MG TABLET PO PRN (17:45)
[2017-06-16] MEDS ORDERED: ONDANSETRON HCL 4MG/2ML VIAL IV PRN (17:45)
[2017-06-16] MEDS ORDERED: CALCIUM CHLORIDE 1,000 MG in DEXT 5% WATER 250 ML IV PRN (17:45)
[2017-06-16 17:47] LABS: BG BASE EXCESS -4.8 mmol/L (-2.0-2.0); BG CARBOXYHEMOGLOBIN 0.3 % (0.5-1.5); BG DEOXYHEMOGLOBIN 1.2 % (0.0-5.0); BG FRACTION INSPIRED OXYGEN 100; BG HCO3 ACT 20.9 mmol/L (22.0-26.0); BG METHEMOGLOBIN 0.3 % (0.0-1.5); BG OXYGEN SATURATION 98.8 % (92.0-98.5); BG OXYHEMOGLOBIN 98.2 % (94.0-97.0); BG PCO2 41.2 mmHg (35.0-45.0); BG PH 7.324 (7.350-7.450); BG PO2 247.4 mmHg (75.0-100.0); BG SAMPLE SITE A-LINE; BG TIDAL VOLUME(mL) 550 mL; BG TOTAL HEMOGLOBIN 12.7 g/dL (12.0-18.0); BG VENT MODE VENT - A/C; BG VENT RATE 12 set
[2017-06-16 18:19] LABS: HEMATOCRIT. 34.5 % (42.0-52.0); HEMOGLOBIN. 11.9 g/dL (14.0-18.0); MEAN CORPUSCULAR HEMOGLOBIN 28.9 pg (28.0-32.0); MEAN CORPUSCULAR VOLUME 83.4 fL (80.0-94.0); MEAN PLATELET VOLUME 7.6 fl (7.4-10.4); PLATELET 286 x1000/uL (130-400); RED BLOOD CELL COUNT 4.13 mill/uL (4.7-6.1); RED CELL DISTRIBUTION WIDTH 13.5 % (11.6-14.6)
[2017-06-16 18:21] LABS: INR 1.1; PARTIAL THROMBOPLASTIN TIME 23.2 sec (23.4-31.0); PROTHROMBIN TIME 11.5 sec (9.4-11.6)
[2017-06-16 18:22] LABS: CARBON DIOXIDE 22 mEq/L (21-32); CHLORIDE 110 mEq/L (98-107)
[2017-06-16] MEDS ORDERED: DEXTROSE 50% WATER 50ML SYRINGE IV PRN ×2 (19:00)
[2017-06-16 19:16] LABS: BG BASE EXCESS -3.7 mmol/L (-2.0-2.0); BG CARBOXYHEMOGLOBIN 0.4 % (0.5-1.5); BG FRACTION INSPIRED OXYGEN 60; BG HCO3 ACT 21.2 mmol/L (22.0-26.0); BG METHEMOGLOBIN 0.2 % (0.0-1.5); BG OXYHEMOGLOBIN 97.4 % (94.0-97.0); BG PCO2 37.9 mmHg (35.0-45.0); BG PH 7.366 (7.350-7.450); BG PO2 126.4 mmHg (75.0-100.0); BG SAMPLE SITE A-LINE; BG TIDAL VOLUME(mL) 550 mL; BG TOTAL HEMOGLOBIN 12.7 g/dL (12.0-18.0); BG VENT MODE VENT - A/C; BG VENT RATE 12 set
[2017-06-16] MEDS ORDERED: ALBUMIN HUMAN 12.5G/250ML (5%) IV NR (20:00)
[2017-06-16 20:17] LABS: BG BASE EXCESS -2.4 mmol/L (-2.0-2.0); BG CARBOXYHEMOGLOBIN 0.4 % (0.5-1.5); BG DEOXYHEMOGLOBIN 3.5 % (0.0-5.0); BG FRACTION INSPIRED OXYGEN 40; BG HCO3 ACT 22.6 mmol/L (22.0-26.0); BG METHEMOGLOBIN 0.2 % (0.0-1.5); BG OXYGEN SATURATION 96.5 % (92.0-98.5); BG OXYHEMOGLOBIN 95.9 % (94.0-97.0); BG PCO2 39.5 mmHg (35.0-45.0); BG PH 7.375 (7.350-7.450); BG PO2 94.1 mmHg (75.0-100.0); BG SAMPLE SITE A-LINE; BG TIDAL VOLUME(mL) 550 mL; BG TOTAL HEMOGLOBIN 11.9 g/dL (12.0-18.0); BG VENT MODE VENT - A/C; BG VENT RATE 12 set
[2017-06-16] MEDS: MAGNESIUM/ALUMINUM HYDROXIDE/SIMETHICONE 30ML UDC NG SCH (21:03)
[2017-06-16] MEDS: CEFAZOLIN 1000MG PREMIX 50 ML IV SCH (21:04)
[2017-06-16] MEDS: MORPHINE SULFATE 2 MG/ML CPJ (NOT FOR IM USE) IV PRN ×2 (21:31→23:47)
[2017-06-16 22:04] LABS: PLATELET ESTIMATE NORMAL
[2017-06-16] MEDS: INSULIN REGULAR (DRIP) 100 UNITS in SODIUM CHLORIDE 0.9% 100 ML IV SCH (22:06)
[2017-06-16 23:13] LABS: HEMATOCRIT. 31.7 % (42.0-52.0); HEMOGLOBIN. 10.9 g/dL (14.0-18.0); MEAN CORPUSCULAR HEMOGLOBIN 28.7 pg (28.0-32.0); MEAN CORPUSCULAR VOLUME 83.4 fL (80.0-94.0); MEAN PLATELET VOLUME 7.4 fl (7.4-10.4); PLATELET 264 x1000/uL (130-400); RED CELL DISTRIBUTION WIDTH 13.6 % (11.6-14.6)
[2017-06-16 23:17] LABS: CHLORIDE 113 mEq/L (98-107)
[2017-06-16 23:19] LABS: CARBON DIOXIDE 25 mEq/L (21-32)
[2017-06-16 23:28] LABS: BG BASE EXCESS -0.5 mmol/L (-2.0-2.0); BG CARBOXYHEMOGLOBIN 0.3 % (0.5-1.5); BG DEOXYHEMOGLOBIN 3.5 % (0.0-5.0); BG FRACTION INSPIRED OXYGEN 30; BG HCO3 ACT 23.8 mmol/L (22.0-26.0); BG METHEMOGLOBIN 0.3 % (0.0-1.5); BG OXYGEN SATURATION 96.5 % (92.0-98.5); BG OXYHEMOGLOBIN 95.9 % (94.0-97.0); BG PCO2 38.2 mmHg (35.0-45.0); BG PH 7.413 (7.350-7.450); BG PO2 95.6 mmHg (75.0-100.0); BG PRESSURE SUPPORT 10; BG SAMPLE SITE A-LINE; BG TIDAL VOLUME(mL) 550 mL; BG TOTAL HEMOGLOBIN 11.6 g/dL (12.0-18.0); BG VENT MODE VENT - SIMV; BG VENT RATE 10 set
[2017-06-16] MEDS: KCL 10MEQ/50ML PREMIX 100 ML IV PRN (23:40)
[2017-06-16] MEDS: MAGNESIUM 1 G PREMIX 100 ML IV PRN (23:41)
[2017-06-17] VITALS (66 sets, daily range): BP systolic 93–164; BP diastolic 43–108
[2017-06-17] MEDS: IPRATROPIUM/ALBUTEROL 0.5-3(2.5)MG/3ML NEB HHN SCH ×6 (00:05→19:45)
[2017-06-17 00:27] LABS: PLATELET ESTIMATE NORMAL
[2017-06-17] MEDS: BLOOD SUGAR DIAGNOSTIC STRIP TEST SCH ×17 (01:23→23:00)
[2017-06-17] MEDS: MAGNESIUM/ALUMINUM HYDROXIDE/SIMETHICONE 30ML UDC NG SCH ×2 (01:30→04:23)
[2017-06-17] MEDS: CEFAZOLIN 1000MG PREMIX 50 ML IV SCH ×3 (04:23→20:07)
[2017-06-17 04:35] LABS: HEMATOCRIT. 31.5 % (42.0-52.0); HEMOGLOBIN. 11.1 g/dL (14.0-18.0); MEAN CORPUSCULAR HEMOGLOBIN 29.5 pg (28.0-32.0); MEAN CORPUSCULAR VOLUME 83.6 fL (80.0-94.0); MEAN PLATELET VOLUME 7.5 fl (7.4-10.4); PLATELET 253 x1000/uL (130-400); RED BLOOD CELL COUNT 3.77 mill/uL (4.7-6.1); RED CELL DISTRIBUTION WIDTH 13.3 % (11.6-14.6)
[2017-06-17 05:03] LABS: CARBON DIOXIDE 25 mEq/L (21-32); CHLORIDE 112 mEq/L (98-107)
[2017-06-17] MEDS: KCL 10MEQ/50ML PREMIX 100 ML IV PRN (05:17)
[2017-06-17 05:42] LABS: BG BASE EXCESS -0.1 mmol/L (-2.0-2.0); BG CARBOXYHEMOGLOBIN 0.5 % (0.5-1.5); BG DEOXYHEMOGLOBIN 5.6 % (0.0-5.0); BG FRACTION INSPIRED OXYGEN 30; BG HCO3 ACT 23.8 mmol/L (22.0-26.0); BG METHEMOGLOBIN 0.1 % (0.0-1.5); BG OXYGEN SATURATION 94.4 % (92.0-98.5); BG OXYHEMOGLOBIN 93.8 % (94.0-97.0); BG PCO2 36.1 mmHg (35.0-45.0); BG PH 7.437 (7.350-7.450); BG PO2 70.8 mmHg (75.0-100.0); BG PRESSURE SUPPORT 10; BG SAMPLE SITE A-LINE; BG TOTAL HEMOGLOBIN 11.8 g/dL (12.0-18.0); BG VENT MODE VENT - CPAP
[2017-06-17] MEDS ORDERED: MAGNESIUM 2 G PREMIX 50 ML IV SCH (06:00)
[2017-06-17] MEDS: FAMOTIDINE 20MG/2ML VIAL IV SCH (09:00)
[2017-06-17] MEDS: MORPHINE SULFATE 2 MG/ML CPJ (NOT FOR IM USE) IV PRN (09:02)
[2017-06-17 09:34] LABS: PLATELET ESTIMATE NORMAL
[2017-06-17] MEDS ORDERED: MAGNESIUM/ALUMINUM HYDROXIDE/SIMETHICONE 30ML UDC NG PRN (10:15)
[2017-06-17] MEDS ORDERED: MAGNESIUM SULFATE 1G IN DEXT 5% 100ML PREMIX IV ONE (13:57)
[2017-06-17] MEDS ORDERED: POTASSIUM CHLORIDE 10MEQ IN WATER 50ML PREMIX IV ONE (13:57)
[2017-06-17] MEDS: OXYCODONE HCL/ACETAMINOPHEN 5/325MG TABLET PO PRN ×2 (14:16→20:08)
[2017-06-17] MEDS: INSULIN REGULAR (DRIP) 100 UNITS in SODIUM CHLORIDE 0.9% 100 ML IV SCH (20:49)
[2017-06-17] MEDS: SODIUM CHLORIDE 0.9% INJ 3ML FLUSH IVF SCH (22:00)
[2017-06-17] MEDS ORDERED: FUROSEMIDE 20MG/2ML VIAL IVP NR (22:53)
[2017-06-18] VITALS (35 sets, daily range): BP systolic 97–136; BP diastolic 59–87
[2017-06-18] MEDS: IPRATROPIUM/ALBUTEROL 0.5-3(2.5)MG/3ML NEB HHN SCH ×6 (00:22→20:32)
[2017-06-18] MEDS: BLOOD SUGAR DIAGNOSTIC STRIP TEST SCH ×13 (00:49→21:00)
[2017-06-18] MEDS: OXYCODONE HCL/ACETAMINOPHEN 5/325MG TABLET PO PRN ×2 (02:38→16:23)
[2017-06-18 05:23] LABS: BASOPHILS % 0.2 % (0.0-2.0); EOSINOPHILS % 0.4 % (0.0-5.0); HEMATOCRIT. 28.6 % (42.0-52.0); HEMOGLOBIN. 10.1 g/dL (14.0-18.0); LYMPHOCYTES % 11.2 % (20.0-50.0); MEAN CORPUSCULAR HEMOGLOBIN 29.9 pg (28.0-32.0); MONOCYTES % 9.1 % (2.0-8.0); NEUTROPHILS % 79.1 % (40.0-76.0); PLATELET 222 x1000/uL (130-400); RED BLOOD CELL COUNT 3.36 mill/uL (4.7-6.1); RED CELL DISTRIBUTION WIDTH 13.5 % (11.6-14.6)
[2017-06-18 05:56] LABS: CARBON DIOXIDE 30 mEq/L (21-32); CHLORIDE 105 mEq/L (98-107)
[2017-06-18] MEDS: SODIUM CHLORIDE 0.9% INJ 3ML FLUSH IVF SCH ×3 (06:54→22:48)
[2017-06-18] MEDS: MAGNESIUM 1 G PREMIX 100 ML IV PRN ×2 (07:57→08:59)
[2017-06-18] MEDS: FAMOTIDINE 20MG/2ML VIAL IV SCH (08:28)
[2017-06-18] MEDS: ASPIRIN 81MG TABLET PO SCH (13:38)
[2017-06-18] MEDS ORDERED: DEXTROSE 50% WATER 50ML SYRINGE IV PRN (14:00)
[2017-06-18] MEDS ORDERED: INSULIN DETEMIR UD 100 UNITS/ML SYR SUBCUT NR (15:00)
[2017-06-18] MEDS: METFORMIN HCL 500MG TABLET PO SCH (17:49)
[2017-06-18] MEDS: INSULIN LISPRO 100 UNITS/ML SUBCUT SCH ×2 (17:50→21:17)
[2017-06-18] MEDS: MORPHINE SULFATE 2 MG/ML CPJ (NOT FOR IM USE) IV PRN (21:18)
[2017-06-18] MEDS: BACITRACIN ZINC 15GM TUBE TOP SCH (22:48)
[2017-06-19] VITALS (9 sets, daily range): BP systolic 106–145; BP diastolic 64–94
[2017-06-19] MEDS: IPRATROPIUM/ALBUTEROL 0.5-3(2.5)MG/3ML NEB HHN SCH ×6 (00:46→20:13)
[2017-06-19] MEDS: MORPHINE SULFATE 2 MG/ML CPJ (NOT FOR IM USE) IV PRN ×3 (03:30→19:50)
[2017-06-19] MEDS: SODIUM CHLORIDE 0.9% INJ 3ML FLUSH IVF SCH ×3 (05:30→21:38)
[2017-06-19] MEDS: BLOOD SUGAR DIAGNOSTIC STRIP TEST SCH ×4 (05:37→21:32)
[2017-06-19 07:39] LABS: BASOPHILS % 1.4 % (0.0-2.0); EOSINOPHILS % 0.6 % (0.0-5.0); HEMATOCRIT. 28.3 % (42.0-52.0); HEMOGLOBIN. 9.7 g/dL (14.0-18.0); LYMPHOCYTES % 13.6 % (20.0-50.0); MEAN CORPUSCULAR HEMOGLOBIN 28.9 pg (28.0-32.0); MEAN CORPUSCULAR VOLUME 84.5 fL (80.0-94.0); MEAN PLATELET VOLUME 8.4 fl (7.4-10.4); MONOCYTES % 8.4 % (2.0-8.0); PLATELET 270 x1000/uL (130-400); RED BLOOD CELL COUNT 3.35 mill/uL (4.7-6.1); RED CELL DISTRIBUTION WIDTH 13.4 % (11.6-14.6)
[2017-06-19 07:46] LABS: CARBON DIOXIDE 23 mEq/L (21-32); CHLORIDE 99 mEq/L (98-107)
[2017-06-19] MEDS: METFORMIN HCL 500MG TABLET PO SCH ×2 (07:53→18:04)
[2017-06-19] MEDS: INSULIN LISPRO 100 UNITS/ML SUBCUT SCH ×4 (07:54→21:37)
[2017-06-19] MEDS: FAMOTIDINE 20MG/2ML VIAL IV SCH (08:07)
[2017-06-19] MEDS: ASPIRIN 81MG TABLET PO SCH (08:07)
[2017-06-19] MEDS ORDERED: LOSARTAN POTASSIUM 50 MG TABLET PO SCH (09:45)
[2017-06-19] MEDS ORDERED: MAGNESIUM 2 G PREMIX 50 ML IV NR (10:30)
[2017-06-19] MEDS: CARVEDILOL 3.125 MG TABLET PO SCH (11:37)
[2017-06-19] MEDS ORDERED: LOSARTAN POTASSIUM 25 MG TABLET PO SCH (17:10)
[2017-06-19] MEDS: BACITRACIN ZINC 15GM TUBE TOP SCH (21:38)
[2017-06-20] VITALS (15 sets, daily range): BP systolic 99–133; BP diastolic 58–78
[2017-06-20] MEDS: IPRATROPIUM/ALBUTEROL 0.5-3(2.5)MG/3ML NEB HHN SCH ×6 (00:37→20:16)
[2017-06-20] MEDS: SODIUM CHLORIDE 0.9% INJ 3ML FLUSH IVF SCH ×2 (06:35→18:16)
[2017-06-20] MEDS: BLOOD SUGAR DIAGNOSTIC STRIP TEST SCH ×3 (06:35→17:28)
[2017-06-20] MEDS: ASPIRIN 81MG TABLET PO SCH (08:28)
[2017-06-20] MEDS: CARVEDILOL 3.125 MG TABLET PO SCH (08:28)
[2017-06-20] MEDS: METFORMIN HCL 500MG TABLET PO SCH ×2 (08:28→18:15)
[2017-06-20] MEDS: FAMOTIDINE 20MG/2ML VIAL IV SCH (08:29)
[2017-06-20] MEDS: INSULIN LISPRO 100 UNITS/ML SUBCUT SCH ×3 (08:39→18:16)
[2017-06-20] MEDS ORDERED: LOSARTAN POTASSIUM 25 MG TABLET PO SCH (09:00)
[2017-06-20] MEDS: BACITRACIN ZINC 15GM TUBE TOP SCH (12:11)
[2017-06-20] MEDS: MORPHINE SULFATE 2 MG/ML CPJ (NOT FOR IM USE) IV PRN (17:29)
== END 2017-06-20 20:45 | disposition home or self-care (01) | DRG 710 ==
LOC: ER 03:52 → CVICU 04:53 → EDBEDREQ 05:00 → ENRESERV 05:23 → 3WST 06-08 20:21 → CVICU 06-16 14:25 → 3WST 06-18 22:27
PROVIDERS: ADMIT Internal Medicine Nephrology; ATTEND Internal Medicine Nephrology
PROC: 5A12012 Performance of Cardiac Output, Single, Manual (ICD-10-PCS; 2017-06-05)
PROC: 02HV33Z Insertion of Infusion Device into Superior Vena Cava, Percutaneous Approach (ICD-10-PCS; 2017-06-05)
PROC: B548ZZA Ultrasonography of Superior Vena Cava, Guidance (ICD-10-PCS; 2017-06-05)
PROC: 0BH17EZ Insertion of Endotracheal Airway into Trachea, Via Natural or Artificial Opening (ICD-10-PCS; 2017-06-05)
PROC: 5A1935Z Respiratory Ventilation, Less than 24 Consecutive Hours (ICD-10-PCS; 2017-06-05)
PROC: 4A023N7 Measurement of Cardiac Sampling and Pressure, Left Heart, Percutaneous Approach (ICD-10-PCS; principal; 2017-06-09)
PROC: B2111ZZ Fluoroscopy of Multiple Coronary Arteries using Low Osmolar Contrast (ICD-10-PCS; 2017-06-09)
PROC: B2151ZZ Fluoroscopy of Left Heart using Low Osmolar Contrast (ICD-10-PCS; 2017-06-09)
PROC: 4A00X4Z Measurement of Central Nervous Electrical Activity, External Approach (ICD-10-PCS; 2017-06-15)
PROC: 02100Z9 Bypass Coronary Artery, One Artery from Left Internal Mammary, Open Approach (ICD-10-PCS; 2017-06-16)
PROC: 021109W Bypass Coronary Artery, Two Arteries from Aorta with Autologous Venous Tissue, Open Approach (ICD-10-PCS; 2017-06-16)
PROC: 06B Lower Veins, Excision (ICD-10-PCS; 2017-06-16)
PROC: 5A1221Z Performance of Cardiac Output, Continuous (ICD-10-PCS; 2017-06-16)
PROC: B246ZZ4 Ultrasonography of Right and Left Heart, Transesophageal (ICD-10-PCS; 2017-06-16)
DX: A41.9 Sepsis, unspecified organism (principal); I21.4 Non-ST elevation (NSTEMI) myocardial infarction; I46.9 Cardiac arrest, cause unspecified; J96.00 Acute respiratory failure, unspecified whether with hypoxia or hypercapnia; I50.23 Acute on chronic systolic (congestive) heart failure; G93.1 Anoxic brain damage, not elsewhere classified; E87.0 Hyperosmolality and hypernatremia; I11.0 Hypertensive heart disease with heart failure; E11.65 Type 2 diabetes mellitus with hyperglycemia; E87.6 Hypokalemia; F10.10 Alcohol abuse, uncomplicated; F14.10 Cocaine abuse, uncomplicated; I25.10 Atherosclerotic heart disease of native coronary artery without angina pectoris; I42.9 Cardiomyopathy, unspecified; Z79.02 Long term (current) use of antithrombotics/antiplatelets; Z87.891 Personal history of nicotine dependence; Z91.19 Patient's noncompliance with other medical treatment and regimen
CPT/HCPCS: 31500; 36415; 36569; 36600; 51702; 70551; 71010; 76700; 76937; 78580; 80048; 80053; 80061; 80076; 80202; 80305; 81001; 82010; 82150; 82375; 82550; 82553; 82805; 82962; 83036; 83605; 83690; 83735; 83880; 84100; 84145; 84439; 84443; 84478; 84484; 85025; 85379; 85576; 85610; 85730; 86705; 86709; 86803; 86850; 86900; 86920; 87040; 87070; 87086; 87186; 87340; 87804; 92610; 92950; 93005; 93306; 93458; 93880; 93970; 94002; 94003; 94640; 94664; 96365; 96375; 97116; 97163; 97164; 97530; 97535; 99291; A4216; C1725; C1760; C1769; C1887; C1893; C9113; G0482; J0171; J0330; J0690; J1250; J1644; J1650; J1815; J1940; J1956; J2250; J2270; J2370; J2405; J2440; J2543; J2704; J3010; J3370; J3475; J3480; J3490; J7030; J7040; J7042; J7050; J7060; J7620; P9041; P9047; Q9967; Q9968; A4315